=== PATIENT | male | born 2000 | race Caucasian/White ===

== ENCOUNTER 2020-07-03 06:53 | Outpatient (NON) | payer OTHER, SELFPAY ==
[2020-07-04 14:04] LABS: SARS-CoV-2 RNA PCR Negative
== END 2020-07-03 06:54 ==
PROVIDERS: PCP Pediatrics; Visit Provider Pediatrics
DX: Z20.828 Contact with and (suspected) exposure to other viral communicable diseases (principal); J02.9 Acute pharyngitis, unspecified; R50.9 Fever, unspecified; R53.83 Other fatigue; R09.89 Other specified symptoms and signs involving the circulatory and respiratory systems
CPT/HCPCS: 87635; C9803; U0003